=== PATIENT | female | born 1985 ===

== ENCOUNTER 2018-09-09 06:17 | Day surgery (SDC) | payer OTHER ==
[2018-09-03 08:17] VITALS: BMI 27.4
[2018-09-09 08:00] VITALS: O2SAT 100
[2018-09-09] MEDS ORDERED: cefOXitin IV 2 gm in Dextrose 2 GM/50 ML BAG IVPB ONE (08:14)
[2018-09-09] MEDS ORDERED: Propofol 10 mg/ml Inj (20 ML) ONE (08:19)
[2018-09-09] MEDS ORDERED: Midazolam 2 MG/2 ML VIAL ONE (08:19)
[2018-09-09] MEDS ORDERED: Rocuronium 10 mg/ml (5 ml) ONE (08:20)
[2018-09-09] MEDS ORDERED: Methylene Blue 10 mg/mL(10ml) IV ONE (08:23)
[2018-09-09] MEDS ORDERED: Bupivacaine HCl 0.5% PF (10 ml) Inj ONE (08:23)
[2018-09-09] MEDS ORDERED: HYDROmorphone 0.5 mg/0.5 ml ISec IVP PRN (09:14)
[2018-09-09] MEDS ORDERED: Lactated Ringer's 500 ML IV ONE (10:00)
[2018-09-09 11:36] VITALS: BP 136/91; PULSE 65; RESP 15; TEMP 97.9
--- NOTE | 2018-09-09 20:50 | OP ---
PROCEDURE DATE: 09/09/2018 PREOPERATIVE DIAGNOSES: Chronic pelvic pain, pelvic adhesions. 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 There was no entry of dye into the left fallopian tube. The patient also has bilateral periovarian adhesions. Uterus is 3 cm, left fundal subserosal myoma. Appendix is normal. ESTIMATED BLOOD LOSS: Less than 1 mL. COMPLICATIONS: Nil. DESCRIPTION OF PROCEDURE: After the risks, benefits, and alternatives of the planned procedures including, but not limited to, infection, hemorrhage, deep vein thrombosis, atelectasis, pneumonia, pulmonary embolism, damage to the bladder, damage to the ureter, renal insufficiency, renal failure, wound infection, wound dehiscence, incisional hernia, keloid formation, damage to the large and small intestines, damage to the inferior vena cava and the aorta requiring extensive repair, anesthesia complications, electrolyte imbalance, possibility of , fluid overload, cerebral edema, embolism, damage to lichen planus and other complications were discussed but are not listed above have been explained to the patient and all her questions answered. Informed consent was obtained. The patient was taken to the operating room in a stable condition. Under a suitable level of general anesthesia, she was prepped and draped in a sterile fashion after having been placed in a dorsal lithotomy position. Castro catheter was inserted. Examination under anesthesia revealed a slightly boggy uterus, anteverted with no adnexal masses. A weighted speculum was inserted into the vagina. The anterior lip of the cervix was grasped using a single-tooth tenaculum and endocervical curettage was performed and scant tissue was obtained. The uterus was sounded to 7 cm. The cervix was dilated with a # 16 Hanks dilator. An endometrial curettage was performed and scant tissue was obtained. A HUMI catheter was inserted into the cervix and insufflated into place. Through an umbilical vertical incision, a Veress needle was inserted and pneumoperitoneum with 3 L was created. Veress needle was removed and replaced by a laparoscope. A 5-mm puncture site was made 3 fingerbreadths above the pubic symphysis through which a 5-mm trocar and sleeve were inserted. Trocar was removed and replaced by Endo Viktor scissors, which was used to lyse posterior cul-de-sac adhesions and bilateral peritubal and periovarian adhesions. The right peritubal adhesions were then lysed, therefore, performed excellent right fimbrioplasty. was performed. There was free flow of dye through the right fallopian tube. At the end of the procedure, peritoneal cavity was irrigated using copious amounts of saline. The saline was evacuated. Inspection of the pelvic organs revealed no evidence for damage and no bleeding from the surgical procedure. The suprapubic sleeve was then removed under laparoscopic guidance. The abdomen was deflated with carbon dioxide and the umbilical sleeve was removed under laparoscopic guidance. Skin incisions were then closed using 4-0 Monocryl. Estimated blood loss for the procedure was less than 1 mL. Pad, needle, and instrument counts were correct x2. There were no complications. Antoni Wilks MD
== END 2018-09-09 11:12 | disposition home or self-care (01) ==
LOC: C.SDS 06:17
PROVIDERS: ATTEND Obstetrics & Gynecology Reproductive Endocrinology
DX: N83.201 Unspecified ovarian cyst, right side (principal); D25.9 Leiomyoma of uterus, unspecified; N73.6 Female pelvic peritoneal adhesions (postinfective)
CPT/HCPCS: 36415; 58558; 58559; 86850; 86900; 88305; J0694; J1100; J1885; J2001; J2250; J2405; J2704; J3010; J7120